=== PATIENT | male | born 1955 | race Caucasian/White ===

== ENCOUNTER 2023-03-11 06:26 | Day surgery (SDC) | payer MEDICARE, OTHER ==
[2023-03-11] MEDS ORDERED: Lactated Ringers 1,000 ML IV SCH (07:30)
[2023-03-11] MEDS ORDERED: Lactated Ringers 1,000 ML IV ONE (07:32)
[2023-03-11] MEDS ORDERED: Versed 2 MG/2 ML Injection ONE (07:48)
[2023-03-11] MEDS ORDERED: DIPRIVAN 200 MG/20 ML IV ONE (07:48)
[2023-03-11] MEDS ORDERED: SUBLIMAZE 100 MCG/2 ML ONE (07:55)
--- NOTE | 2023-03-11 08:24 | OP ---
SURGERY DATE/TIME: 03/11/2023 0753 PREOPERATIVE DIAGNOSIS: Screening exam with history of colon polyps five years ago. POSTOPERATIVE DIAGNOSIS: Normal colon. PROCEDURE: Colonoscopy. SURGEON: Dr. Souza. ANESTHESIA: Medications given by anesthesia department. HISTORY: The patient is a 67-year-old white male patient who presents now for screening colonoscopy. The patient does report a previous history of colon polyps five years ago. He has had no problems recently. The patient was felt to need to have endoscopic evaluation. He was appraised of the risks of the procedure including the risk of perforation, phlebitis, untoward reaction to medication, bleeding and missed lesions. The patient verbalized his understanding and desired to have the procedure performed. DESCRIPTION OF PROCEDURE: The patient was given the medications by the anesthesia department. He had continuous pulse oximetry, ECG monitoring and intermittent blood pressure monitoring during the examination. He was placed in the left lateral decubitus position. A digital rectal examination was performed and revealed normal anal sphincter tone, no masses and a normal prostate. The flexible Olympus pediatric colonoscope was used to intubate the rectum. A view of the colon was developed sequentially to the cecum. Upon insertion and withdrawal, including a retroflex view in the rectum, no mucosal lesions were encountered. The scope was removed from the patient who tolerated the procedure well and was sent back to OP recovery in good condition. The prep was noted to be fair to good.
[2023-03-11 08:31] VITALS: RESP 18
[2023-03-11 08:38] VITALS: O2SAT 94
[2023-03-11 08:41] VITALS: BP 120/79; PULSE 61; TEMP 97.6
== END 2023-03-11 08:50 | disposition home or self-care (01) ==
LOC: SDC 06:26
PROVIDERS: ATTEND Family Medicine
DX: Z12.11 Encounter for screening for malignant neoplasm of colon (principal); Z09 Encounter for follow-up examination after completed treatment for conditions other than malignant neoplasm; Z86.010 Personal history of colon polyps; E11.9 Type 2 diabetes mellitus without complications
CPT/HCPCS: 82947; G0121; J2250; J2704; J3010

== ENCOUNTER 2024-09-19 16:49 | Emergency (ER) | payer MEDICARE ==
[2024-09-19 17:00] VITALS: BP 107/73; PULSE 91; RESP 20; TEMP 97.6; O2SAT 95
[2024-09-19] MEDS ORDERED: Adacel Vial IM ONE (17:19)
--- NOTE | 2024-09-19 17:19 | ERPHSYRPT ---
- History of Present Illness Time Seen by Provider: 09/19/24 16:56 Source: patient Exam Limitations: no limitations Patient Subjective Stated Complaint: Laceration Triage Nursing Assessment: Patient ambulated back to ED and transferred self to bed. Patient A+O X3. Patient's skin pink, warm and dry. Patient complains of laceration to left hand 3rd digit. Patient states he was hanging wire on a truss when he lost his balance and cut his finger on a nail. Patient has 1cm skin flap noted to left hand 3rd digit close to fingernail. Patient denies pain or discomfort. Physician History: 68-year-old sure about tetanus status [id number] presented in the ER with laceration left third digit while working at home where sharp nail edge came across. Patient reports bleeding initially but stopped with applying pres sure. Mild to moderate dull aching to sharp pain with palpation and movements. 1.25 cm superficial laceration from the lateral nail fold with minimal oozing. Intact nail. Discussed with patient about laceration repair with suture versus glue and Steri-Strip and he wanted to go for glue and Steri-Strip which is secured. It was a clean cut, thoroughly washed, do not think needs antibiotics, re commended Tylenol and ibuprofen as needed and outpatient follow-up. Discussed signs symptoms of worsening needing return to ER which he seems understanding. Tetanus is updated Allergies/Adverse Reactions: cephalexin monohydrate [From Keflex] Allergy (Verified 09/19/24 16:54) Penicillins Allergy (Verified 09/19/24 16:54) Home Medications: Lipitor 20 mg PO DAILY 03/05/12 [History] Wellbutrin 300 mg PO DAILY 03/05/12 [History] Levothyroxine Sodium 88 Mcg [Synthroid 88 Mcg] 88 mcg PO DAILY 03/01/23 [History] Pioglitazone HCl/Metformin HCl [Pioglitazone-Metformin 15-500] 1 each PO DAILY 03/01/23 [History] Aspirin EC 81 mg [Ecotrin 81 mg] 81 mg PO DAILY 03/11/23 [History] Biotin/Calcium Carbonate [Biotin 800 Mcg Tablet] 1 each PO DAILY 03/11/23 [History] L.acidoph,Paracasei, B.lactis [Probiotic] 1 each PO DAILY 03/11/23 [History] Loratadine 10 mg [Claritin 10 mg] 10 mg PO DAILY 03/11/23 [History] Magnesium Oxide [Magnesium] 400 mg PO DAILY 03/11/23 [History] [place]-3 Fatty Acids [[place]-3] 1,000 mg PO DAILY 03/11/23 [History] Ubidecarenone [Co Q-10] 100 mg PO DAILY 03/11/23 [History] Hx Tetanus, Diphtheria Vaccination/Date Given: No Hx Influenza Vaccination/Date Given: No Hx Pneumococcal Vaccination/Date Given: No Travel Risk - International Travel Have you traveled outside of the country in past 3 weeks: No - Emerging Infectious Disease Are you exhibiting symptoms associated with any current EIDs: No - Review of Systems Constitutional: No Symptoms Respiratory: No Symptoms Cardiac: No Symptoms Abdominal/Gastrointestinal: No Symptoms Musculoskeletal: Injury Skin: Skin Lesions Neurological: No Symptoms - Past Medical History Pertinent Past Medical History: Yes Neurological History: No Pertinent History ENT History: No Pertinent History Cardiac History: High Cholesterol, Hypertension Respiratory History: No Pertinent History Endocrine Medical History: Diabetes Type II Musculoskeletal History: Osteoarthritis GI Medical History: No Pertinent History History: No Pertinent History Psycho-Social History: Anxiety Male Reproductive Disorders: No Pertinent History Other Medical History: PSH: ONLY R SHOULDER RTC REPAIR - Past Surgical History Past Surgical History: No Musculoskeletal: Orthopedic Surgery Other Surgical History: colonoscopy. right rotator cuff surgery - Social History Smoking Status: Former smoker Exposure to second hand smoke: No Drug Use: none - Social Determinants of Health Will the patient participate in the screening: Yes Do you worry about a steady place to live?: No Do you have any problems with any of the following?: No known problems In the past 12 months,have you had to go without utilities?: No Transportation Issues: No Has anyone in your support network made you feel unsafe?: No Have you or anyone in your house had to go w/o enough food: No - Nursing Vital Signs Nursing Vital Signs: Initial Vital Signs Temperature 97.6 F 09/19/24 16:55 Pulse Rate 91 H 09/19/24 16:55 Respiratory Rate 20 09/19/24 16:55 Blood Pressure 107/73 09/19/24 16:55 O2 Sat by Pulse Oximetry 95 09/19/24 16:55 Pain Scale Pain Intensity 0 - Physical Exam General Appearance: no apparent distress Neck Exam: normal inspection, full range of motion Cardiovascular/Respiratory Exam: normal breath sounds, regular rate/rhythm Hand Exam: laceration (1.25 cm laceration lateral nail fold to the pulp. No active spurting, minimal oozing.) Neuro/Tendon Exam: normal sensation, normal motor functions, normal tendon functions Mental Status Exam: alert, oriented x 3, cooperative Skin Exam: normal color SpO2 Interpretation: normal SpO2: 95 O2 Delivery: Room Air Procedures - Laceration/Wound Repair Left Finger Time of Procedure: 17:07 Wound Location: Left, hand Wound Length (cm): 1.25 Wound's Depth, Shape: superficial Wound Explored: clean Irrigated: Yes Hibiclens Prep: Yes Wound Repaired With: Steri-strips, Dermabond Sterile Dressing Applied?: Yes - Progress Progress: improved Progress Note: 09/19/24 17:18 68-year-old sure about tetanus status [id number] presented in the ER with laceration left third digit while working at home where sharp nail edge came across. Patient reports bleeding initially but stopped with applying pressure. Mild to moderate dull aching to sharp pain with palpation and movements. 1.25 cm superficial laceration from the lateral nail fold with minimal oozing. Intact nail. Discussed with patient about laceration repair with suture versus glue and Steri-Strip and he wanted to go for glue and Steri-Strip which is secured. It was a clean cut, thoroughly washed, do not think needs antibiotics, recommended Tylenol and ibuprofen as needed and outpatient follow-up. Discussed signs symptoms of worsening needing return to ER which he seems understanding. Tetanus is updated Counseled pt/family regarding: diagnosis, need for follow-up Medical Desision Making - Independent Historian Additional History obtained from: Spouse - Risk of complications The pt has a mod risk of morbidity or mortality based on: Need for minor surgical intervention in patient with know risk factors - Departure Departure Disposition: Home Clinical Impression: Finger laceration Condition: Stable Critical Care Time: No Referrals: STACI WILLIS MD [Primary Care Provider] - Follow up with PCP 1 day Instructions: Laceration Repair With Glue (DC) Additional Instructions: Keep it clean and dry, take Tylenol/ibuprofen as needed. Avoid exertional activity. Return to ER for increasing pain swelling redness discharge or if develop fever chills etc.
[2024-09-19] MEDS: Adacel Vial IM ONE (17:23)
== END 2024-09-19 17:32 | disposition home or self-care (01) ==
LOC: ED 16:49
DX: S61.213A Laceration without foreign body of left middle finger without damage to nail, initial encounter (principal); W45.0XXA Nail entering through skin, initial encounter; W22.09XA Striking against other stationary object, initial encounter; E78.5 Hyperlipidemia, unspecified; I10 Essential (primary) hypertension; E11.9 Type 2 diabetes mellitus without complications; Z79.84 Long term (current) use of oral hypoglycemic drugs; Z79.899 Other long term (current) drug therapy; Z23 Encounter for immunization
CPT/HCPCS: 12001; 90471; 90715; 99282; 99283

== ENCOUNTER 2024-09-29 11:28 | Emergency (ER) | payer MEDICARE ==
[2024-09-29 11:36] VITALS: TEMP 97.7
[2024-09-29] MEDS ORDERED: BACIGUENT PACKET ONE (11:54)
--- NOTE | 2024-09-29 11:57 | ERPHSYRPT ---
- History of Present Illness Time Seen by Provider: 09/29/24 11:52 Source: patient, family Exam Limitations: no limitations Patient Subjective Stated Complaint: patient was treated here for wound to finger the glue came off and they were concerned. Triage Nursing Assessment: pt alert nad oriented x4, pupils perrla, gait is steady. wound is clean dry no drainage noted appears to be healing very well but glue has come off. can see new tissue growing in on the site. well approximated. Physician History: patient was treated here for wound to finger the glue came off and they were concerned. Patient is 68-year-old male was seen in the emergency room 2 to 3 days ago with the injury to his left third digit distal tuft. Patient has a flap skin injury due to sharp object and which was treated with glue. Patient was keeping dressing and today when they were dressing the wound the they thought that it is not healing well so they came to the emergency room. In the emergency room wound is appears to be healing better has some contused tissue which is spreading off. Patient denies any other pain redness extending to the hand fever chills nausea or vomiting. Extremities Pain Location: 3rd finger: left Allergies/Adverse Reactions: cephalexin monohydrate [From Keflex] Allergy (Verified 09/29/24 11:50) Penicillins Allergy (Verified 09/19/24 16:54) Home Medications: Lipitor 20 mg PO DAILY 03/05/12 [History] Wellbutrin 300 mg PO DAILY 03/05/12 [History] Levothyroxine Sodium 88 Mcg [Synthroid 88 Mcg] 88 mcg PO DAILY 03/01/23 [History] Pioglitazone HCl/Metformin HCl [Pioglitazone-Metformin 15-500] 1 each PO DAILY 03/01/23 [History] Aspirin EC 81 mg [Ecotrin 81 mg] 81 mg PO DAILY 03/11/23 [History] Biotin/Calcium Carbonate [Biotin 800 Mcg Tablet] 1 each PO DAILY 03/11/23 [History] L.acidoph,Paracasei, B.lactis [Probiotic] 1 each PO DAILY 03/11/23 [History] Loratadine 10 mg [Claritin 10 mg] 10 mg PO DAILY 03/11/23 [History] Magnesium Oxide [Magnesium] 400 mg PO DAILY 03/11/23 [History] [place]-3 Fatty Acids [[place]-3] 1,000 mg PO DAILY 03/11/23 [History] Ubidecarenone [Co Q-10] 100 mg PO DAILY 03/11/23 [History] Hx Tetanus, Diphtheria Vaccination/Date Given: No Hx Influenza Vaccination/Date Given: No Hx Pneumococcal Vaccination/Date Given: No Travel Risk - International Travel Have you traveled outside of the country in past 3 weeks: No - Emerging Infectious Disease Are you exhibiting symptoms associated with any current EIDs: No - Review of Systems Constitutional: No Symptoms Eyes: No Symptoms Ears, Nose, & Throat: No Symptoms Respiratory: No Symptoms Cardiac: No Symptoms Abdominal/Gastrointestinal: No Symptoms Genitourinary Symptoms: No Symptoms Musculoskeletal: No Symptoms Skin: Other (healing wound on third left finger distal tuft) Neurological: No Symptoms Psychological: No Symptoms - Past Medical History Pertinent Past Medical History: Yes Neurological History: No Pertinent History ENT History: No Pertinent History Cardiac History: High Cholesterol, Hypertension Respiratory History: No Pertinent History Endocrine Medical History: Diabetes Type II Musculoskeletal History: Osteoarthritis GI Medical History: No Pertinent History History: No Pertinent History Psycho-Social History: Anxiety Male Reproductive Disorders: No Pertinent History Other Medical History: PSH: ONLY R SHOULDER RTC REPAIR - Past Surgical History Past Surgical History: No Musculoskeletal: Orthopedic Surgery Other Surgical History: colonoscopy. right rotator cuff surgery - Social History Smoking Status: Former smoker Exposure to second hand smoke: No Drug Use: none - Social Determinants of Health Will the patient participate in the screening: Yes Do you worry about a steady place to live?: No Do you have any problems with any of the following?: No known problems In the past 12 months,have you had to go without utilities?: No Transportation Issues: No Has anyone in your support network made you feel unsafe?: No Have you or anyone in your house had to go w/o enough food: No - Nursing Vital Signs Nursing Vital Signs: Initial Vital Signs Temperature 97.7 F 09/29/24 11:28 Pulse Rate 87 09/29/24 11:28 Respiratory Rate 18 09/29/24 11:28 Blood Pressure 126/86 09/29/24 11:28 O2 Sat by Pulse Oximetry 97 09/29/24 11:28 Pain Scale Pain Intensity 0 - Physical Exam General Appearance: no apparent distress Eyes, Ears, Nose, Throat Exam: normal ENT inspection Neck Exam: normal inspection Cardiovascular/Respiratory Exam: chest non-tender Abdominal Exam: non-tender Back Exam: normal inspection Shoulder Exam: normal inspection Elbow/Forearm Exam: normal inspection Wrist Exam: normal inspection Hand Exam: normal inspection, laceration (3rd left finger) SpO2: 97 - Course Nursing assessment & vital signs reviewed: Yes Ordered Tests: Active Orders 24 hr Category Date Time Status Wound Care STAT Care 09/29/24 11:48 Active - Progress Progress: improved Counseled pt/family regarding: diagnosis, need for follow-up Medical Desision Making - Independent Historian Additional History obtained from: Spouse - Risk of complications Minimal Risk: Minimal risk of morbidity - Departure Departure Disposition: Home Clinical Impression: Wound check, abscess Finger laceration Qualifiers: Encounter type: subsequent encounter Finger: middle finger Damage to nail status: without damage Foreign body presence: without foreign body Laterality: left Qualified Code(s): S61.213D - Laceration without foreign body of left middle finger without damage to nail, subsequent encounter Condition: Stable Critical Care Time: No Referrals: STACI WILLIS MD [Primary Care Provider] - Follow up/PCP as directed Instructions: Wound Care (DC) Additional Instructions: Discharge/Care Plan ADOLFO PICKARD was seen on 09/29/24 in the Emergency Room. The patient was counseled regarding Diagnosis,Lab results, Imaging studies, need for follow up and when to return to the Emergency Room. Prescriptions given: Discharge Note I have spoken with the patient and/or caregivers. I have explained the patient's condition, diagnosis and treatment plan based on the information available to me at this time. I have answered the patient's and/or caregiver's questions and addressed any concerns. The patient and/or caregivers have as good understanding of the patient's diagnosis, condition and treatment plan as can be expected at this point. The vital signs have been stable. The patient's condition is stable and appropriate for discharge from the emergency department. The patient will pursue further outpatient evaluation with the primary care physician or other designated or consulting physician as outlined in the discharge instructions. The patient and/or caregivers are agreeable to this plan of care and follow-up instructions have been explained in detail. The patient and/or caregivers have received these instruction. The patient/and or caregivers are aware that any significant change in condition or worsening of symptoms should prompt an immediate return to this or the closest emergency department or call 911. ADOLFO PICKARD was seen on 09/29/24 n the Emergency Room. At that time you were treated for an emergent condition, during your visit Laboratory, Radiology and/or other procedures may have been ordered. It is very important that you follow-up with your Primary Care Physician STACI WILLIS within the next 24-48 hours to review your Emergency Room visit and the final results of testing that was ordered. Some test results such as Urine Cultures, Blood Cultures, and other cultures if ordered will not be finalized for 24-48 hours. If you do not have a Primary Care Provider please call the medical records department at [phone] ext [phone] to obtain a copy of your results or you may sign into our patient portal to obtain these results by visiting us @ [email or web address] and completing the following steps: 1. Click on the Patient Portal link 2. Click the Patient Self Enrollment Link to complete the enrollment form and entering your 3. Once the enrollment form is completed you will receive an email with a temporary ID and password at the email address you provided. 4. Next choose a user name and password. Your user name must be at least 4 characters long and your password must be at least 4 characters long. 5. Choose a security question from the list and provide your answer to the question. If you already have signed into the Health Portal you may access your Health Care Information 17/01 by the following steps: 1. Login to our website @ [email or web address] 2. Enter your original user name and password. FAQS The [facility] Health Portal is an online tool that contains your Lab Results, Radiology Reports, Visit History, Discharge Instructions and Health Summary Lab and Radiology Results will not be available for 72 hours on the portal. The Portal is a secure site, passwords are encryted and URLs are re-written so they cannot be copied and pasted. You and authorized family members are the only ones who can access your Portal. Also there is a timeout feature that protects your information if you leave the Portal page open. If you have technical difficulty please use the Contact Us link on the page this will allow you to submit any questions you have regarding the Portal or you may contact the Medical Record Department at [phone] ext [phone].
[2024-09-29] MEDS: BACIGUENT PACKET TP ONE (12:06)
[2024-09-29 12:12] VITALS: BP 117/68; PULSE 68; RESP 16; O2SAT 99
== END 2024-09-29 12:12 | disposition home or self-care (01) ==
LOC: ED 11:28
DX: Z48.00 Encounter for change or removal of nonsurgical wound dressing (principal); L02.512 Cutaneous abscess of left hand; S61.213D Laceration without foreign body of left middle finger without damage to nail, subsequent encounter; E78.5 Hyperlipidemia, unspecified; I10 Essential (primary) hypertension; E11.9 Type 2 diabetes mellitus without complications; Z79.899 Other long term (current) drug therapy
CPT/HCPCS: 99281; A9270-GY

== ENCOUNTER 2025-04-13 21:01 | Emergency (ER) | payer MEDICARE ==
[2025-04-13 21:17] VITALS: TEMP 97.7
--- NOTE | 2025-04-13 21:28 | ERPHSYRPT ---
- History of Present Illness Time Seen by Provider: 04/13/25 21:22 Source: patient, family Exam Limitations: no limitations Patient Subjective Stated Complaint: pt reports on 04/09/25 he was lifting concrete bags out of the back of his truck and pulled his lower back. states he saw the chiropractor which typically helps his back pain but it did not this time. pt reports since then he has had numbness to the bilateral lower legs, back pain, numbness to his fingers bialterally, pressure around his waist, and numbness to his top teeth as well as a headache. Triage Nursing Assessment: pt is aox3, pt appears anxious, pt speech is normal, clear, answers questions appropriately and follows commands, pupils perrl, afebrile, resps easy and non labored, cap refill < 3 seconds, radial pulses strong and equal, pt skin pink warm dry. pt is ambulatory to treatment room, pt range of motion is intact, pt sensation is intact. Physician History: Pt had onset of face numbness x 6 days and bad headache just today - no trauma or blood thinners. Pt also has numbness of hands today no neck trauma. Pt denies CP or SObreath. Pt has Hx of back pain but not workup just chiropractor. No bowel or bladder symptoms. No fever, no spinal injections or IV drug use reported. No direct trauma/fall. Right eyelid is lower in repose but has full ROM EOMs and eyelid fully retracts up voluntarily . Fundi benign. PERRL. Visual mejia intact. No pronator drift . No facial weakness or asymmetry. Lifted concrete bags this week and got worse. Notes that walking makes legs go numb and in distribution of l4/5. Abd is tender lower no peritoneal signs and has numbness across low abd. Discussed with pt and available family risks and benefits of testing/Tx including CBC, CMP, EKG, Trop, BNP, UA, Amylase, Lipase, CT c spine head, CTA Head and neck, CT abd, , CXR, steroids, and they wish to proceed so these are ordered. Results discussed with pt and available family. The pts pain resolved after the steroids , and he declines any further pain meds. He is advised to watch the sugar closely and no metformin for 2 more days. Pt and family were advised of the limitations of the testing and Tx performed today in this setting and that we have not yet determined a precise cause for their symptoms and there still could be additional pathology of a serious nature evolving undetected, including cardiac, neuro and vascular and other. They voice their understanding and wish to choose outpatient f/u rather than further testing in ER or admission to hospital or transfer at this time and they have the capacity to make this choice. Timing/Duration: today Severity: moderate Associated Symptoms: headaches, other (numbness face, hands, legs) Allergies/Adverse Reactions: cephalexin monohydrate [From Keflex] Allergy (Verified 04/13/25 21:18) Penicillins Allergy (Verified 04/13/25 21:18) Home Medications: Lipitor 20 mg PO DAILY 03/05/12 [History] Wellbutrin 300 mg PO DAILY 03/05/12 [History] Levothyroxine Sodium 88 Mcg [Synthroid 88 Mcg] 88 mcg PO DAILY 03/01/23 [History] Pioglitazone HCl/Metformin HCl [Pioglitazone-Metformin 15-500] 1 each PO DAILY 03/01/23 [History] Aspirin EC 81 mg [Ecotrin 81 mg] 81 mg PO DAILY 03/11/23 [History] L.acidoph,Paracasei, B.lactis [Probiotic] 1 each PO DAILY 03/11/23 [History] Ubidecarenone [Co Q-10] 100 mg PO DAILY 03/11/23 [History] Cetirizine HCl [Zyrtec] 10 mg PO DAILY 04/13/25 [History] Antlers-3 Fatty Acids [Antlers-3] 1 each PO DAILY 04/13/25 [History] Tamsulosin HCl 0.4 mg PO DAILY 04/13/25 [History] Venlafaxine HCl ER 75 mg [Effexor XR 75 MG] 75 mg PO DAILY 04/13/25 [History] Vitamin B6/Cyanocobalamin/Herb [Centrum Menopause Support Tab] 1 each PO BID 04/13/25 [History] Hx Tetanus, Diphtheria Vaccination/Date Given: No Hx Influenza Vaccination/Date Given: No Hx Pneumococcal Vaccination/Date Given: No Travel Risk - International Travel Have you traveled outside of the country in past 3 weeks: No - Emerging Infectious Disease Are you exhibiting symptoms associated with any current EIDs: No - Review of Systems Constitutional: No Fever, No Chills Eyes: No Symptoms Ears, Nose, & Throat: No Symptoms, Other (face numbness) Respiratory: No Cough, No Dyspnea Cardiac: No Chest Pain, No Edema, No Syncope Abdominal/Gastrointestinal: Abdominal Pain, No Nausea, No Vomiting, No Diarrhea Genitourinary Symptoms: No Dysuria Musculoskeletal: Back Pain, Neck Pain, Injury (lifting), No Fall Skin: No Rash Neurological: Headache, No Dizziness, No Focal Weakness, No Sensory Changes Psychological: No Symptoms Endocrine: No Symptoms Hematologic/Lymphatic: No Symptoms Immunological/Allergic: No Symptoms All Other Systems: Reviewed and Negative - Past Medical History Pertinent Past Medical History: Yes Neurological History: No Pertinent History ENT History: No Pertinent History Cardiac History: High Cholesterol, Hypertension Respiratory History: No Pertinent History Endocrine Medical History: Diabetes Type II, Hypothyroidism Musculoskeletal History: No Pertinent History GI Medical History: No Pertinent History History: No Pertinent History Psycho-Social History: Anxiety Male Reproductive Disorders: No Pertinent History Other Medical History: PSH: ONLY R SHOULDER RTC REPAIR - Past Surgical History Past Surgical History: Yes Musculoskeletal: Orthopedic Surgery Other Surgical History: colonoscopy. right rotator cuff surgery 2022 - Social History Smoking Status: Former smoker Exposure to second hand smoke: No Drug Use: none - Social Determinants of Health Will the patient participate in the screening: Yes Do you worry about a steady place to live?: No Do you have any problems with any of the following?: No known problems In the past 12 months,have you had to go without utilities?: No Transportation Issues: No Has anyone in your support network made you feel unsafe?: No Have you or anyone in your house had to go w/o enough food: No - Nursing Vital Signs Nursing Vital Signs: Initial Vital Signs Temperature 97.7 F 04/13/25 21:05 Pulse Rate 85 04/13/25 21:05 Respiratory Rate 18 04/13/25 21:05 Blood Pressure 168/96 04/13/25 21:05 O2 Sat by Pulse Oximetry 98 04/13/25 21:05 Pain Scale Pain Intensity 0 - Physical Exam General Appearance: no apparent distress, alert Eye Exam: PERRL/EOMI, eyes nml inspection Ears, Nose, Throat Exam: normal ENT inspection, TMs normal, pharynx normal, moist mucous membranes Neck Exam: normal inspection, non-tender, supple, full range of motion Respiratory Exam: normal breath sounds, lungs clear, No respiratory distress Cardiovascular Exam: regular rate/rhythm, normal heart sounds, normal peripheral pulses Gastrointestinal/Abdomen Exam: soft, normal bowel sounds, tenderness, No distention, No mass, No guarding Rectal Exam: deferred Back Exam: normal inspection, normal range of motion, No CVA tenderness, No vertebral tenderness Extremity Exam: normal inspection, normal range of motion, pelvis stable Neurologic Exam: alert, oriented x 3, cooperative, normal mood/affect, nml cerebellar function, nml station & gait, sensation nml, No motor deficits Skin Exam: normal color, warm, dry, No rash Lymphatic Exam: No adenopathy SpO2 Interpretation: normal SpO2: 98 O2 Delivery: Room Air - Course Nursing assessment & vital signs reviewed: Yes EKG Interpreted by Me: Sinus Rhythm, NORMAL AXIS, NORMAL INTERVALS, NORMAL QRS, Non-specific ST Changes, Other (lae) - Radiology Exams Chest X-ray Interpretation: Interpreted by me, No Pneumothorax, Other (diffuse interstitial pattern. ) - CT Exams Head CT Interpretation: Tele-radiologist Report, No/Intracranial Hemorrhag, Other (No major CVA, some non critical carotid p[laqu and Aortic plaque no aneurysm.) Cervical Spine CT Interpretation: Tele-radiologist Report, No Fracture, Other (DJD) Abdomen/Pelvis CT Interpretation: Tele-radiologist Report, Normal Appendix, Other (Lumbar spine Dx and fx right trans process L5; diverticulosis , renal stranding. ) Ordered Tests: Active Orders 24 hr Category Date Time Status EKG-ER Only STAT Care 04/13/25 22:11 Active IV Insertion STAT Care 04/13/25 22:11 Completed ABDOMEN AND PELVIS W/0 CONTRAS [CT] Stat Exams 04/13/25 21:27 Completed CERVICAL SPINE WO CONTRAST [CT] Stat Exams 04/13/25 21:29 Completed CHEST 1 VIEW (PORTABLE) Stat Exams 04/13/25 21:[address] ANGIOGRAPHY NECK [CT] Stat Exams 04/13/25 21:34 Completed CTA HEAD W AND/OR WO CONTRAST [CT] Stat Exams 04/13/25 21:34 Completed HEAD WITHOUT CONTRAST [CT] Stat Exams 04/13/25 21:23 Completed RECONSTRUCTION [CT] Stat Exams 04/13/25 21:38 Completed AMYLASE Stat Lab 04/13/25 21:25 Completed BNPII [NT PRO BNPII] Stat Lab 04/13/25 21:25 Completed CBC W DIFF Stat Lab 04/13/25 21:25 Completed CMP Stat Lab 04/13/25 21:25 Completed LIPASE Stat Lab 04/13/25 21:25 Completed Lactic Acid Stat Lab 04/13/25 21:25 Completed TROPONIN Q4H Lab 04/13/25 21:25 Completed TROPONIN Q4H Lab 04/14/25 01:30 Ordered TROPONIN Q4H Lab 04/14/25 05:30 Ordered UA W/RFX UR CULTURE Stat Lab 04/13/25 23:02 Completed Medication Summary Discontinued Medications Generic Name Dose Route Start Last Admin Trade Name Jose Enriqueq PRN Reason Stop Dose Admin Methylprednisolone Sodium 0 mg 04/13/25 21:40 04/13/25 21:44 Succinate 125 mg/ Sterile IV 04/13/25 21:41 125 mg Water 2 ml STAT ONE Administration Methylprednisolone Sodium Succinate Confirm 04/13/25 21:42 Methylprednis Sod Succ 125 Mg/2 Ml Vial Administered 04/13/25 21:43 Dose 125 mg .ROUTE .STK-MED ONE Sterile Water Confirm 04/13/25 21:42 Water For Injection,Sterile 10 Ml Vial Administered 04/13/25 21:43 Dose 10 ml IJ .STK-MED ONE Lab/Rad Data: Laboratory Result Diagrams 04/13/25 21:25 04/13/25 21:25 Laboratory Results 04/13/25 04/13/25 04/13/25 Range/Units 23:02 21:25 21:25 WBC (4.23-9.07) x10^3/uL RBC (4.63-6.08) x10^6/uL Hgb (13.7-17.5) g/dL Hct (40.1-51.0) % MCV (79.0-92.2) fL MCH (25.7-32.2) pg MCHC (32.3-36.5) g/dL RDW (11.6-14.4) % Plt Count (163-337) x10^3/uL MPV (9.4-12.4) fL Gran % (34.0-67.9) % Immature Gran % (Auto) (0.001-0.429) % Nucleat RBC Rel Count (0.00-0.2) % Eos # (Auto) (0.04-0.54) x10^3/uL Immature Gran # (Auto) (0.001-0.031) x10^3u/L Absolute Lymphs (auto) (1.32-3.57) x10^3/uL Absolute Monos (auto) (0.30-0.82) x10^3/uL Absolute Nucleated RBC (0.00-0.012) x10^3u/L Lymphocytes % (21.8-53.1) % Monocytes % (5.3-12.2) % Eosinophils % (0.8-7.0) % Basophils % (0.2-1.2) % Absolute Granulocytes (1.78-5.38) x10^3/uL Basophils # (0.01-0.08) x10^3/uL Sodium (135-145) mmol/L Potassium (3.5-5.1) mmol/L Chloride (98-107) mmol/L Carbon Dioxide (22-30) mmol/L Anion Gap (5-15) MEQ/L BUN (9-20) mg/dL Creatinine (0.66-1.25) mg/dL Estimated GFR ML/MIN Glucose (74-106) mg/dL Lactic Acid (0.4-2.0) Calcium (8.4-10.2) mg/dL Total Bilirubin (0.2-1.3) mg/dL AST (17-59) U/L ALT (0-50) U/L Alkaline Phosphatase (38-126) U/L Troponin I < 0.012 (0.000-0.033) ng/mL NT-Pro-B Natriuret Pep 143 (<300) pg/mL Serum Total Protein (6.3-8.2) g/dL Albumin (3.5-5.0) g/dL Amylase (30-110) U/L Lipase (23-300) U/L Urine Color Yellow (Yellow) Urine Appearance Clear (Clear) Urine pH 7.0 (4.6-8.0) Ur Specific [place] 1.015 (1.005-1.030) Urine Protein Negative (Negative) Urine Glucose (UA) Negative (Negative) mg/dL Urine Ketones Negative (Negative) Urine Blood Negative (Negative) Urine Nitrite Negative (Negative) Urine Bilirubin Negative (Negative) Urine Urobilinogen 0.2 (0.2) mg/dL Ur Leukocyte Esterase Negative (Negative) U Hyaline Cast (Auto) NONE SEEN (0-2) /LPF Urine Microscopic RBC 0-2 (0-5) /HPF Urine Microscopic WBC 0-2 (0-5) /HPF Ur Epithelial Cells None Seen (None Seen) /HPF Urine Bacteria None Seen (None Seen) /HPF Urine Culture Reflexed NO (NO) 04/13/25 04/13/25 04/13/25 Range/Units 21:25 21:25 21:25 WBC 7.7 (4.23-9.07) x10^3/uL RBC 4.78 (4.63-6.08) x10^6/uL Hgb 15.1 (13.7-17.5) g/dL Hct 44.2 (40.1-51.0) % MCV 92.5 H (79.0-92.2) fL MCH 31.6 (25.7-32.2) pg MCHC 34.2 (32.3-36.5) g/dL RDW 12.3 (11.6-14.4) % Plt Count 251 (163-337) x10^3/uL MPV 9.3 L (9.4-12.4) fL Gran % 50.8 (34.0-67.9) % Immature Gran % (Auto) 0.5 H (0.001-0.429) % Nucleat RBC Rel Count 0.0 (0.00-0.2) % Eos # (Auto) 0.34 (0.04-0.54) x10^3/uL Immature Gran # (Auto) 0.04 H (0.001-0.031) x10^3u/L Absolute Lymphs (auto) 2.25 (1.32-3.57) x10^3/uL Absolute Monos (auto) 1.09 H (0.30-0.82) x10^3/uL Absolute Nucleated RBC 0.00 (0.00-0.012) x10^3u/L Lymphocytes % 29.2 (21.8-53.1) % Monocytes % 14.2 H (5.3-12.2) % Eosinophils % 4.4 (0.8-7.0) % Basophils % 0.9 (0.2-1.2) % Absolute Granulocytes 3.91 (1.78-5.38) x10^3/uL Basophils # 0.07 (0.01-0.08) x10^3/uL Sodium 140 (135-145) mmol/L Potassium 4.1 (3.5-5.1) mmol/L Chloride 109 H (98-107) mmol/L Carbon Dioxide 22 (22-30) mmol/L Anion Gap 13.0 (5-15) MEQ/L BUN 17 (9-20) mg/dL Creatinine 1.06 (0.66-1.25) mg/dL Estimated GFR 76.4 ML/MIN Glucose 146 H (74-106) mg/dL Lactic Acid 1.4 (0.4-2.0) Calcium 9.2 (8.4-10.2) mg/dL Total Bilirubin 0.20 (0.2-1.3) mg/dL AST 33 (17-59) U/L ALT 39 (0-50) U/L Alkaline Phosphatase 79 (38-126) U/L Troponin I (0.000-0.033) ng/mL NT-Pro-B Natriuret Pep (<300) pg/mL Serum Total Protein 7.3 (6.3-8.2) g/dL Albumin 4.1 (3.5-5.0) g/dL Amylase 69 (30-110) U/L Lipase 132 (23-300) U/L Urine Color (Yellow) Urine Appearance (Clear) Urine pH (4.6-8.0) Ur Specific [place] (1.005-1.030) Urine Protein (Negative) Urine Glucose (UA) (Negative) mg/dL Urine Ketones (Negative) Urine Blood (Negative) Urine Nitrite (Negative) Urine Bilirubin (Negative) Urine Urobilinogen (0.2) mg/dL Ur Leukocyte Esterase (Negative) U Hyaline Cast (Auto) (0-2) /LPF Urine Microscopic RBC (0-5) /HPF Urine Microscopic WBC (0-5) /HPF Ur Epithelial Cells (None Seen) /HPF Urine Bacteria (None Seen) /HPF Urine Culture Reflexed (NO) - Progress Progress: improved, re-examined Counseled pt/family regarding: lab results, diagnosis, need for follow-up, rad results Medical Desision Making - Independent Historian Additional History obtained from: Spouse, Family - Discussion of managment Reviewed:: Test results, Need for additional workup Agreed on:: Treatment plan, need for follow-up - Diagnostic Testing Diagnostic test were ordered, analyzed, and reviewed by me: Yes Radiological Interpretation: Interpreted by me, Teleradiologist Report - Risk of complications The pt has a mod risk of morbidity or mortality based on: Need for prescription drug management The pt has a high risk of morbidity or mortality based on: Decision regarding hospitilization or escalation of hosp level of care - Departure Departure Disposition: Home Clinical Impression: Cervical and vertebral DDD and spondylol, Diverticulosis, Sinus disease Condition: Good Critical Care Time: No Referrals: STACI WILLSI MD [Primary Care Provider, [facility]] - Follow up/PCP as directed Instructions: Degenerative disc disease - ED discharge instructions, Spondylolisthesis (DC), Spondylolysis (DC), Diverticulosis Additional Instructions: Although we did find significant Disk Disease as a source for some of your symptoms, and did not find immediate concerns in the vascular studies performed, there is minor atherosclerosis to follow up with your Dr. and there still could be undetected conditions developing of importance so followup with your Dr. and complete the workup and treatment and return meantime if pain again becomes severe, or any bowel or bladder symptoms or weakness, or fever or dizziness or any other concerns. also followup for the inflammation seen around the kidneys on cat scan.
[2025-04-13 21:41] LABS: BASOPHIL % 0.9 % (0.2-1.2); Basophil (Absolute #) 0.07 x10^3/uL (0.01-0.08); Eosinophil (Absolute #) 0.34 x10^3/uL (0.04-0.54); Hematocrit 44.2 % (40.1-51.0); Hemoglobin 15.1 g/dL (13.7-17.5); IMMATURE GRAN # 0.04 x10^3u/L (0.001-0.031); IMMATURE GRAN % 0.5 % (0.001-0.429); Lymphocyte (Absolute #) 2.25 x10^3/uL (1.32-3.57); Mean Corpuscular Hemoglobin 31.6 pg (25.7-32.2); Mean Corpuscular Hgb Concent. 34.2 g/dL (32.3-36.5); Monocyte (Absolute #) 1.09 x10^3/uL (0.30-0.82); NUCLEATED RBC # 0.00 x10^3u/L (0.00-0.012); NUCLEATED RBC % 0.0 % (0.00-0.2); Platelet Count 251 x10^3/uL (163-337); Red Blood Count 4.78 x10^6/uL (4.63-6.08); White Blood Count 7.7 x10^3/uL (4.23-9.07)
[2025-04-13] MEDS ORDERED: Sterile H2O 10 ml IJ ONE (21:42)
[2025-04-13] MEDS: solu-MEDROL 125 MG, Sterile H2O 10 ml 2 ML IV ONE (21:44)
[2025-04-13 21:52] LABS: Calcium 9.2 mg/dL (8.4-10.2); Carbon Dioxide 22.0 mmol/L (22-30); Creatinine 1 1.06 mg/dL (0.66-1.25); EST GLOMERULAR FILTRATION RATE 76.4 ML/MIN; Glucose 146.0 mg/dL (74-106); Potassium 4.1 mmol/L (3.5-5.1); SGOT/AST 33.0 U/L (17-59); SGPT/ALT 39.0 U/L (0-50); Total Protein 7.3 g/dL (6.3-8.2)
--- NOTE | 2025-04-13 23:04 | XRAY ---
CLINICAL HISTORY: Numbness upper jaw severe headache COMPARISON: None. TECHNIQUE: Axial non-contrast CT scan of the brain was performed from the skull base to the high parietal region. One of the following dose reduction techniques was utilized for this exam: automated exposure control, adjustment of the mA and/or kV according to patient size, or use of iterative reconstruction. FINDINGS: Brain Parenchyma: Normal attenuation of the cerebral hemispheres, cerebellum, and brainstem. No evidence of acute infarct, hemorrhage, or mass effect. No abnormal areas of hypoattenuation or hyperattenuation. Ventricular System: The ventricles are normal in size and configuration. No evidence of hydrocephalus or ventricular enlargement. Subarachnoid Spaces: Normal sulci and cisterns. No evidence of subarachnoid hemorrhage or extra-axial fluid collections. Cerebellum and Brainstem: No masses, lesions, or areas of abnormal density are present. Orbits: Normal appearance of the globes, optic nerves, and extraocular muscles. No evidence of orbital masses or abnormal density. Sinuses: Chronic left maxillary sinusitis is present. Mastoid Air Cells: The mastoid air cells are clear. No evidence of mastoiditis. Skull: Normal skull morphology. IMPRESSION: 1. No acute intracranial abnormality. 2. Chronic left maxillary sinus disease. Electronically Signed by: Dewayne Celis MD. (04/13/2025 23:02:56 EDT)
--- NOTE | 2025-04-13 23:12 | XRAY ---
CLINICAL HISTORY: numbness of hands COMPARISON: No previous studies are available for comparison. TECHNIQUE: CT scan of the cervical spine was performed without the administration of intravenous contrast. Contiguous axial images were obtained from the skull base to the upper thoracic spine. Coronal and sagittal reformatted images were also reviewed. One of the following dose reduction techniques was utilized for this exam: automated exposure control, adjustment of the mA and/or kV according to patient size, and use of iterative reconstruction. FINDINGS: Vertebrae: Mild anterior wedging of the C4 and C5 vertebral bodies, as well as sclerotic changes of the C3 to C6 vertebral bodies, likely degenerative in nature. No evidence of acute fracture or dislocation. No signs of lytic or sclerotic lesions. Normal configuration of the posterior elements. Intervertebral Discs: Near complete fusion of the C2-C3 level. Posterior disc osteophyte complex, facet and uncovertebral arthropathy at C3-C4 result in severe right and moderate left foraminal stenosis. Disc space narrowing, posterior disc osteophyte complex, and facet and uncovertebral arthropathy at C4-C5 contribute to moderate to severe right foraminal stenosis. Disc space narrowing, posterior disc osteophyte complex, and facet and uncovertebral arthropathy contribute to moderate right foraminal stenosis at C5-C6. Disc space narrowing, posterior disc osteophyte complex, and facet and uncovertebral arthropathy contribute to moderate right and mild left foraminal stenosis at C6-C7. Prevertebral Soft Tissues: The prevertebral soft tissues are normal in thickness without evidence of mass or abnormal fluid collection. Additional Findings: Left maxillary sinusitis. IMPRESSION: 1. No acute fracture or malalignment. 2. Moderate to severe cervical spondylosis at C3-C4 to C6-C7 resulting in moderate to severe foraminal stenosis as described. 3. Advised clinical correlation and, if warranted, MRI may be done. Electronically Signed by: Dewayne Celis MD. (04/13/2025 23:09:47 EDT)
[2025-04-13 23:16] LABS: Glucose, Urine Negative (Negative); Protein,Urine Dip Negative (Negative); RBC 0-2 /HPF (0-5); WBC 0-2 /HPF (0-5)
--- NOTE | 2025-04-14 | XRAY ---
CLINICAL HISTORY: MORA AND FACIAL NUMBNESS COMPARISON: None. TECHNIQUE: Axial CT angiography of the neck was performed with contrast, including sagittal and coronal reformats with MIP reconstructions. One of the following dose reduction techniques was utilized for this exam: automated exposure control, adjustment of the mA and/or kV according to patient size, or use of iterative reconstruction. One of these 3D techniques was utilized: Maximum Intensity Pixel (MIP), 3D Reconstructed Images, Volume Rendered Images, Surface Shaded Rendering. FINDINGS: The aortic arch demonstrates atherosclerotic changes with calcified plaques. A normal branching pattern is noted. Carotid Arteries: Bilateral common carotid arteries appear normal in caliber and contrast opacification. The cervical portions of the bilateral internal carotid arteries appear normal in caliber and contrast opacification. Bilateral external carotid arteries appear normal in caliber and contrast opacification. Vertebral Arteries: Vertebral arteries bilaterally are well opacified. Jugular Veins: Normal opacification of the internal and external jugular veins bilaterally. No evidence of thrombosis or compression. Subclavian Arteries: Small calcific plaque at the origin of the right subclavian artery. No evidence of significant stenosis, occlusion, or aneurysm. Thyroid Gland: Normal size and morphology of the thyroid gland. Visualized chest: Subtle subpleural haziness in the visualized lung mejia. Cervical Spine: Degenerative changes in the cervical spine. IMPRESSION: No major vascular occlusion on inferior angiography of the neck. Electronically Signed by: Dewayne Celis MD. (04/13/2025 23:58:37 EDT)
--- NOTE | 2025-04-14 00:02 | XRAY ---
CLINICAL HISTORY: MORA AND FACIAL NUMBNESS COMPARISON: CT head from the same day was reviewed. TECHNIQUE: Axial CT angiography of the head was performed with 100 cc Isovue 370 contrast, including sagittal and coronal reformats with MIP reconstructions. One of the following dose reduction techniques was utilized for this exam: automated exposure control, adjustment of the mA and/or kV according to patient size, or use of iterative reconstruction. One of these 3D techniques was utilized: Maximum Intensity Pixel (MIP), 3D Reconstructed Images, Volume Rendered Images, Surface Shaded Rendering. FINDINGS: Intracranial Arteries: The intracranial portions of the bilateral internal carotid arteries show tiny calcific plaques in the supraclinoid portions, with no significant luminal narrowing. The bilateral anterior and middle cerebral arteries appear normal in caliber and contrast opacification. The basilar artery and bilateral posterior cerebral arteries appear normal in caliber and contrast opacification. The visualized vertebral arteries appear normal in caliber and contrast opacification. Visualized Brain Parenchyma: No significant abnormality detected. Incidental Findings: Chronic left maxillary sinusitis with opacification and bony remodeling. Left-sided nasal septal deviation. IMPRESSION: No critical stenosis on CT angiography of the head. Electronically Signed by: Dewayne eClis MD. (04/14/2025 00:00:22 EDT)
--- NOTE | 2025-04-14 00:04 | XRAY ---
CLINICAL HISTORY: ABD PAIN COMPARISON: None. TECHNIQUE: Multiple contiguous axial images were obtained through the lumbar spine without IV contrast. Sagittal and coronal reformatted images were obtained from the axial data. CT scan was performed according to ALARA (as low as reasonably achievable). FINDINGS: The normal lordotic curvature of the lumbar spine is lost, likely due to muscle spasm. Degenerative changes are noted in the visualized spine in the form of marginal osteophytes, endplate irregularities and sclerosis, reduction in the disc height, small posterior disc bulges, vacuum phenomenon, and facet arthropathy changes, predominantly at lower lumbar levels. Grade I anterolisthesis of the L5 over S1 vertebra is noted with bilateral pars interarticularis defect of the L5 vertebra. Grade I retrolisthesis of the L2 over L3 vertebra is present. Undisplaced fracture of transverse process of L5 vertebra on right side. Lumbar vertebral bodies are maintained in height. No vertebral destructive changes are seen. T12-L1: Evaluated on sagittal images only. No disc bulge, canal stenosis, or neuroforaminal narrowing. Subarticular recesses are patent. L1-L2: Diffuse disc bulge indenting the ventral thecal sac, with no canal stenosis or neural foraminal narrowing. L2-L3: Decreased intervertebral disc height with vacuum phenomenon and diffuse disc bulge indenting the ventral thecal sac and bilateral neural foraminal narrowing. L3-L4: Diffuse disc bulge indenting the ventral thecal sac and bilateral neural foraminal narrowing. L4-L5: Decreased intervertebral disc height with diffuse disc bulge indenting the ventral thecal sac and bilateral neural foraminal narrowing with possible compression of bilateral exiting nerve roots. No spinal canal stenosis. L5-S1: Pseudodisc bulge indenting the ventral thecal sac and bilateral neural foraminal narrowing with compression of bilateral exiting nerve roots. Paravertebral soft tissues are unremarkable. 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 Undisplaced fracture of transverse process of L5 vertebra on right side. Electronically Signed by: Rivas Cruz MD. (04/14/2025 00:02:25 EDT)
[2025-04-14 00:15] VITALS: O2SAT 98
--- NOTE | 2025-04-14 00:16 | XRAY ---
CLINICAL HISTORY: abd pain COMPARISON: No prior studies are available for comparison. TECHNIQUE: Non-contrast CT of the abdomen and pelvis was performed, with the following protocol: axial images, and reconstructed coronal and sagittal images. One of the following dose reduction techniques was utilized for this exam: automated exposure control, adjustment of the mA and/or kV according to patient size, and use of iterative reconstruction. FINDINGS: Abdomen: Liver: The liver is normal in size, shape, and density. No focal lesions, cysts, or masses are identified. Gallbladder and Biliary System: The gallbladder is normal in size and shape. No wall thickening, pericholecystic fluid, or gallstones are identified. Pancreas: The pancreatic head, body, and tail are visualized and appear normal in size and density. No pancreatic masses or calcifications are noted. Spleen: The spleen is normal in size, shape, and density. No splenic lesions or masses are identified. Appendix: The appendix is normal in size without baldemar-appendiceal fat stranding, and without an appendicolith. No evidence of appendiceal abscess or perforation. Kidneys and Adrenal Glands: Both kidneys are normal in size, shape, and position. Cortical thickness is within normal limits. No renal calculi or hydronephrosis are present. There is evidence of perinephric fatty stranding, suggesting an underlying inflammatory process. The adrenal glands are unremarkable. Abdominal Aorta and Vessels: The abdominal aorta and major branches are patent without evidence of an aneurysm or significant atherosclerosis. Pelvis: Urinary Bladder: The urinary bladder is normal in contour and wall thickness. No intraluminal lesions are seen. Prostate: The prostate is enlarged in size and contour with concretions inside. No masses or abnormal thickening are observed. Seminal Vesicles: The seminal vesicles demonstrate normal appearance without abnormal enlargement or mass. Peritoneal and Retroperitoneal Structures: No free fluid or abnormal fluid collections are identified within the abdomen or pelvis. No lymphadenopathy is noted. Bowel: There is evidence of sigmoid colon diverticular disease with no evidence of diverticulitis. The visualized bowel loops are normal in caliber and appearance. No evidence of bowel obstruction or wall thickening is present. Bones and Soft Tissues: The pelvic bones and soft tissues are unremarkable. No fractures or abnormal masses are identified. There are advanced spondylo-degenerative changes of the lumbar spine with L2-L3, L4-L5, and L5-S1 advanced disc degeneration with vacuum sign and opposing Modic type III degeneration. There is evidence of grade 1 retrolisthesis of L2 over L3 and L4 over L5, as well as grade 1 anterolisthesis of L5 over S1. IMPRESSION: 1. Evidence of perinephric fatty stranding suggesting an underlying inflammatory process. 2. Enlarged prostate. 3. Evidence of sigmoid colon diverticular disease with no evidence of diverticulitis. 4. 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 Evidence of grade 1 retrolisthesis of L2 over L3 and L4 over L5. 5. Evidence of grade 1 anterolisthesis of L5 over S1. Electronically Signed by: Dewayne Celis MD. (04/14/2025 00:15:29 EDT)
[2025-04-14 01:05] VITALS: BP 145/80; PULSE 74; RESP 16
--- NOTE | 2025-04-14 07:48 | XRAY ---
Indication: Epigastric pain. Comparison: December 10, 2007 Portable chest again demonstrates normal heart and lungs. Bony thorax intact. No new/acute findings.
== END 2025-04-14 01:04 | disposition home or self-care (01) ==
LOC: ED 21:01
DX: M50.31 Other cervical disc degeneration, high cervical region (principal); M48.02 Spinal stenosis, cervical region; M50.323 Other cervical disc degeneration at C6-C7 level; M51.369 Other intervertebral disc degeneration, lumbar region without mention of lumbar back pain or lower extremity pain; M48.061 Spinal stenosis, lumbar region without neurogenic claudication; K57.30 Diverticulosis of large intestine without perforation or abscess without bleeding; J32.0 Chronic maxillary sinusitis; R51.9 Headache, unspecified; R20.0 Anesthesia of skin; I10 Essential (primary) hypertension; E11.9 Type 2 diabetes mellitus without complications; Z79.84 Long term (current) use of oral hypoglycemic drugs; Z79.899 Other long term (current) drug therapy